=== PATIENT | female | born 1980 | race Caucasian/White ===

== ENCOUNTER 2020-02-16 00:49 | Emergency (ER) | payer MEDICAID ==
[~2020-02-16] VITALS: Ht 162.6 cm; Wt 98.7 kg
[2020-02-16 00:57] VITALS: BP 174/96
[2020-02-16] MEDS ORDERED: L.E.T SOLUTION TP ONE ×2 (01:06→01:30)
[2020-02-16] MEDS ORDERED: LIDOCAINE-MPF 1%, 5ML ONE (01:06)
--- NOTE | 2020-02-16 01:09 | NUR ---
PT ADAMANTLY REFUSING CT AT THIS TIME, RISK AND BENEFITS DISCUSSED WITH PT AND SIGNIFICANT OTHER BY MAX DÍAZ. PT AGIATATED, BUT CALMS WITH MAX TALKING WITH HER. PT REFUSING SUTURES WELL, PA DISCUSSING PLAN OF CARE AND RECOMENDATIONS. PT IS AA AND O TIMES 4, PERLLA, SPEECH CLEAR, DOES ADMIT TO SOME ETOH THIS EVENING.
[2020-02-16] MEDS ORDERED: DIPH,PERTUSS(ACELL),TET VAC/PF 0.5 ML IM-VACC ONE ×2 (01:14→01:30)
--- NOTE | 2020-02-16 01:21 | NUR ---
DT UPDATED, LET PLACED, PT CONTINUES TO USE PROFANITIES AND EXPRESS DISGUST WITH BEING IN ER. WARM BLANKETS GIVEN, SIGNIFICANT OTHER AT BEDSIDE, DOOR CLOSED PT YELLING PROFANITIES AND OTHER PTS NEAR
--- NOTE | 2020-02-16 01:43 | NUR ---
MAX TO ROOM FOR DERMABOUND AND STERI STRIPS AFTER WOUND IRRIGATION.
--- NOTE | 2020-02-16 02:01 | NUR ---
PT AND SIGNIFICANT OTHER CUSSING AT PA, SOMEWHAT THREATENING POSTURE, WALKS OUT BACK DOOR TOWARD PARKING LOT, SECURITY FOLLOWING ON CAMERA BOTH PT AND SIGNIFICANT OTHER INTOXICATED AND WILL CALL PD IF EITHER DRIVING.
== END 2020-02-16 02:05 | disposition left against medical advice (07) ==
LOC: ED 01:34
DX: S01.111A Laceration without foreign body of right eyelid and periocular area, initial encounter (principal); S09.90XA Unspecified injury of head, initial encounter; F10.120 Alcohol abuse with intoxication, uncomplicated; F17.210 Nicotine dependence, cigarettes, uncomplicated; W18.30XA Fall on same level, unspecified, initial encounter; Y93.89 Activity, other specified; Y92.410 Unspecified street and highway as the place of occurrence of the external cause; Y99.8 Other external cause status; Y90.9 Presence of alcohol in blood, level not specified
CPT/HCPCS: 12052; 90471; 90715; 99284